=== PATIENT | female | born 2005 | race Hispanic/Latino ===

== ENCOUNTER 2025-05-12 13:29 | Day surgery (SDC) | payer OTHER ==
[2025-05-12] MEDS ORDERED: hydrALAZINE 20 MG/ML VIAL SLOW IVP PRN (14:30)
[2025-05-12 15:55] LABS: Glucose, Urine (Dipstick) Normal (Negative); Leukocyte Negative (Negative); Protein, Urine (Dipstick) 15 mg/dl (Neg-Trace); Specific Gravity, Urine 1.005 (1.005-1.030)
[2025-05-12 16:22] LABS: Bacteria/HPF Rare-Few HPF (None Seen); CAUTI Indications for Culture Pregnancy; RBC/HPF None Seen HPF (0-3); Urine Culture Reflex Yes Yes; WBC/HPF 0-3 HPF (0-3)
== END 2025-05-12 17:15 | disposition home or self-care (01) ==
LOC: CSHLD/OP 13:29
PROVIDERS: ATTEND Family Medicine
DX: O47.1 False labor at or after 37 completed weeks of gestation (principal); O99.891 Other specified diseases and conditions complicating pregnancy; R39.15 Urgency of urination; O26.853 Spotting complicating pregnancy, third trimester; Z3A.39 39 weeks gestation of pregnancy
CPT/HCPCS: 81001; 87086; 99283

== ENCOUNTER 2025-05-13 09:30 | Inpatient (IN) | payer OTHER ==
[~2025-05-13 09:30] MED LIST: Bupivacaine 0.25% HCL 30 ML VIAL ONE
[2025-05-13] MEDS ORDERED: HYDROcodone/Acetaminophen 5/325 mg Tablet PO PRN ×2 (10:00→22:58)
[2025-05-13] MEDS ORDERED: Penicillin G Potassium 5 MILL.UNITS in Sodium Chloride 0.9% 100 ML IVPB SCH (10:00)
[2025-05-13] MEDS ORDERED: Carboprost 250 MCG/ML AMP IM PRN (10:00)
[2025-05-13] MEDS ORDERED: Oxytocin 30 units/NS 500 ML 500 ML IV SCH ×3 (10:00→14:00)
[2025-05-13] MEDS ORDERED: hydrALAZINE 20 MG/ML VIAL SLOW IVP PRN ×2 (10:00→22:58)
[2025-05-13] MEDS ORDERED: Acetaminophen 500 MG TAB PO PRN (10:00)
[2025-05-13] MEDS ORDERED: Tranexamic Acid 1,000 MG/10 ML VIAL IVP PRN (10:00)
[2025-05-13] MEDS ORDERED: Diphenoxylate HCl/Atropine Tablet PO PRN (10:00)
[2025-05-13] MEDS ORDERED: Ondansetron PF 4 MG/2 ML Vial IVP PRN ×2 (10:00→22:58)
[2025-05-13] MEDS ORDERED: Methylergonovine 0.2 MG/ML VIAL IM PRN (10:00)
[2025-05-13] MEDS: Penicillin G Potassium 5 MILL.UNITS VIAL ONE (10:35)
[2025-05-13 10:41] LABS: Hematocrit 39.8 % (34.9-44.5); Hemoglobin 13.1 g/dL (12.0-15.5); Mean Corpuscular Hemoglobin 27.5 pg (27.0-33.0); Mean Corpuscular Volume 83.6 fL (81.6-98.3); Platelet Count 185 10x3/uL (150-450); Red Blood Cell (RBC) Count 4.76 10x6/uL (3.90-5.03); White Blood Cell (WBC) Count 12.71 10x3/uL (3.5-10.5)
[2025-05-13 11:21] LABS: Hep B Surf Ag - L&D Non-Reactive S/CO (NonReactive)
[2025-05-13 11:22] LABS: Syphilis Antibody Index 0.06 S/CO (<1.00 Non-Reactive)
[2025-05-13] MEDS: fentaNYL/Ropivacaine Epidural 100 ML ONE (15:36)
[2025-05-13] MEDS: Penicillin G 2.5 MILL.units 2.5 MILL.UNITS in Premix 1 BAG IVPB SCH (19:47)
[2025-05-13] MEDS: Lidocaine 1% (PF) 30 ML VIAL SC PRN (20:41)
[2025-05-13] MEDS: Ibuprofen 800 MG TAB PO PRN (22:27)
[2025-05-13] MEDS ORDERED: Milk Of Magnesia 30 ML UDCUP PO PRN (22:58)
[2025-05-13] MEDS ORDERED: Benzocaine-Menthol 82.5 ML CAN TOP PRN (22:58)
[2025-05-13] MEDS ORDERED: Boostrix 0.5 ML (Tdap) VIAL (>/=7 yrs of age) IM ONE (22:58)
[2025-05-13] MEDS ORDERED: diphenhydrAMINE 25 MG CAP PO PRN (22:58)
[2025-05-13] MEDS ORDERED: Bisacodyl 10 MG SUPP PR PRN (22:58)
[2025-05-13] MEDS ORDERED: Lanolin Ointment 7 GM TUBE TOP PRN (22:58)
[2025-05-14 04:37] LABS: Glucose, Urine (Dipstick) Normal (Negative); Leukocyte 500 (Negative); Protein, Urine (Dipstick) 30 mg/dl (Neg-Trace); Specific Gravity, Urine 1.010 (1.005-1.030)
[2025-05-14] MEDS: Ibuprofen 800 MG TAB PO SCH (05:05)
[2025-05-14 06:23] LABS: CAUTI Indications for Culture Fever or rigors; RBC/HPF Greater than 50 HPF (0-3)
[2025-05-14 06:24] LABS: Bacteria/HPF 1+ HPF (None Seen); Urine Culture Reflex No No
[2025-05-14] MEDS: cefTRIAXone\\ROCEPHIN 1 GM in Sodium Chloride 0.9% 100 ML IVPB SCH (08:06)
[2025-05-14] MEDS: Ferrous Sulfate 325 MG TAB PO SCH (08:06)
[2025-05-14] MEDS: Lidocaine 1% (PF) 30 ML VIAL ONE (08:25)
[2025-05-15 09:10] VITALS: BP 121/75; TEMP 98
[2025-05-15] MEDS: Measles/Mumps/Rubella 10 MCG/0.5 ML VIAL SC ONE (11:38)
== END 2025-05-15 15:20 | disposition home or self-care (01) | DRG 807 ==
LOC: CSHLD/OP 09:30 → CSHLD 11:26 → CSHPP 22:56
PROVIDERS: ADMIT Family Medicine; ATTEND Family Medicine
PROC: 10E0XZZ Delivery of Products of Conception, External Approach (ICD-10-PCS; principal; 2025-05-13)
DX: O70.0 First degree perineal laceration during delivery (principal); Z37.0 Single live birth; Z3A.39 39 weeks gestation of pregnancy; Z79.899 Other long term (current) drug therapy
CPT/HCPCS: 36415; 51702; 81001; 85027; 86780; 86850; 86900; 86901; 87340; 90707; 99285; J0595; J0665; J0696; J2540